=== PATIENT | female | born 1985 | race Caucasian/White ===

== ENCOUNTER 2024-06-15 07:53 | Emergency (ER) | payer OTHER, SELFPAY ==
[2024-06-15 07:59] VITALS: BP 132/86
[2024-06-15 08:22] LABS: % Basophils 0.4 % (0-2); % Eosinophils 3.9 % (0-6); % Immature Granulocytes 0.8 % (0-0.5); % Lymphocytes 30.6 % (20.5-51.1); % Monocytes 7.5 % (1.7-9.3); % Neutrophils 56.8 % (42.2-75.2); Absolute Eosinophils 0.4 10^3/uL (0-0.7); Absolute Immature Granulocytes 0.1 10^3/uL (0-0.05); Absolute Lymphocytes 3.1 10^3/uL (1.2-3.4); Absolute Monocytes 0.8 10^3/uL (0.1-0.6); Absolute Neutrophils 5.7 10^3/uL (1.4-6.5); Hematocrit 40.3 % (37.0-47.0); Hemoglobin 14.2 g/dL (12.0-16.0); Mean Corp Hgb Conc. 35.2 g/dL (33.0-37.0); Mean Corpuscular Hgb 32.9 pg (27.0-31.0); Mean Corpuscular Volume 93.5 fL (81.0-99.0); Mean Platelet Volume 10.4 fL (7.4-10.4); Nucleated Red Blood Cells % 0 %; Platelet Count 231 10^3/uL (130-400); Red Blood Cell Count 4.31 10^6/uL (4.20-5.40); Red Cell Dist. Width 12.3 % (11.5-14.5); White Blood Cell Count 10.1 10^3/uL (4.8-10.8)
[2024-06-15 08:39] LABS: ALT (SGPT) 23 U/L (0-35); AST (SGOT) 22 U/L (14-36); Albumin 4.3 g/dl (3.5-5.0); Alkaline Phosphatase 57 U/L (38-126); Blood Urea Nitrogen 8 mg/dl (7-17); Calcium 9.5 mg/dl (8.4-10.2); Carbon Dioxide 27 mmol/L (22-30); Chloride 102 mmol/L (98-107); Glucose 91 mg/dl (70-99); Potassium 3.7 mmol/L (3.5-5.1); Sodium 136 mmol/L (135-145); Total Bilirubin 0.6 mg/dl (0.2-1.3); Total Protein 6.7 g/dl (6.3-8.2); eGFR > 60.00
--- NOTE | 2024-06-15 09:39 | ED.GENMED ---
History of Present Illness
General
Chief Complaint: Problems
Source: patient
Exam Limitations: none
Time Seen by Provider: 06/15/24 09:17
Nursing documentation reviewed up to this point in time: agreed with
History of Present Illness
History of Present Illness:
Patient is a 39-year-old female who presents to the ER for evaluation. Patient had IVF/embryo transfer and should be 5 weeks and 5 days however started cramping yesterday and having bleeding. She reports mostly had brownish discharge
however she did have 1 blood clot. 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 She denies any fever chills.
She is from out of [place], [place] visiting for the holiday.
She denies any pain now.
Review of Systems
Review of Systems
Allergies reviewed?: Yes
All Other Systems: ROS reviewed and negative except as documented in HPI and ROS
Constitutional: Reports no symptoms
Cardiac: Reports no symptoms
ABD/GI: Reports other (lower abdominal cramping )
: Reports other (spotting )
Musculoskeletal: Reports no symptoms
Skin: Reports no symptoms
Neurological: Reports no symptoms
Psychiatric: Reports no symptoms
Phy Exam
General Physical Exam
General Presentation: no apparent distress
General age: appears stated age
General Skin: warm and dry
General Habitus: normal
General Mental: alert
General Hydration: appears well hydrated
Gastrointestinal Exam
Gastrointestinal Exam: non tender and soft
Neurological Exam
Neurological Exam: alert and oriented x3
Musculoskeletal Exam
Musculoskeletal Exam: full ROM
Skin Exam
Skin Exam: normal color and warm/dry
Psychiatric Exam
Psychiatric Exam: normal mood/affect
Course
Orders/Labs/Results
Orders:
Orders
06/15/24 08:13
Type+Screen Urgent
Complete Blood Count/With Diff Urgent
Comprehensive Metabolic Panel Urgent
HCG, Beta Quantitative [Beta HCG Quantitative] Urgent
Is this a screen?: No
06/15/24 08:47
US W Transvaginal Urgent
Reason For Exam: vag bleed
06/15/24 10:03
ABO2 Urgent
BBK Wristband Number:
Associate notified that ABO2 has been ordered: [id number]
Date: 06/15/24
Time: 08:19
Drafting Supervisor ID: [id number]
06/15/24 12:21
Vital Signs- Treatment ONCE
Frequency: Once
Abnormal Lab Results
06/15/24
08:13
MCH 32.9 H pg
(27.0-31.0)
Abs Immat Gran (auto) 0.1 H 10^3/uL
(0-0.05)
Absolute Monos (auto) 0.8 H 10^3/uL
(0.1-0.6)
Immature Gran % 0.8 H %
(0-0.5)
06/15/24 08:13
06/15/24 08:13
Vital Signs
Initial and Last Documented VS:
Initial Vital Signs
Temp Pulse Resp BP Pulse Ox
97.4 F 84 18 132/86 100
06/15/24 07:59 06/15/24 07:59 06/15/24 07:59 06/15/24 07:59 06/15/24 07:59
Last Documented Vital Signs
Temp Pulse Resp BP Pulse Ox
98.8 F 78 16 125/90 100
06/15/24 09:51 06/15/24 09:51 06/15/24 09:51 06/15/24 09:51 06/15/24 09:51
Information
Weeks gestation: Weeks: (5)
Location: N/A
MDM/Problems Addressed
MDM/Problems Addressed:
Patient is a 39-year-old female who presented with vaginal bleeding and cramping. She is approximately 5 weeks and 5 days status post embryo transplant.
She complained of some dark vaginal spotting and had 1 blood clot. She is visiting from [place].
She presents awake alert no acute distress denies any abdominal pain now. Denies any recent fever chills denies any UTI. Patient's beta-hCG is 32,991. Ultrasound was done: Which does show a single live IUP approximate 6 weeks with moderate-sized
subchorionic hemorrhage. Heart rate 120.
Will defer pelvic exam. Patient again with no cramping denies any vaginal bleeding now. Since patient is out of town I did give patient a prescription for repeat hCG quantitative in the next 48 hours. d/c to return if any worsening of symptoms.
d/c no lifting no vaginal intercourse. She will be in contact with her OBGYN in [place].
Chronic conditions affecting care:
History of previous miscarriages
*Critical Care Note
Total Time (30-74mins, 75-104mins- exclusive of procedures): Not Applicable
ED Attending Note
-
Portions of this chart may have been created with voice recognition software.� Occasional wrong word or��sound alike� substitutions may have occurred due to the inherent limitations of voice recognition software.
Discharge Plan
Departure
Patient Disposition: Home (Routine Discharge)
Date of Disposition: 06/15/24
Time of Disposition: 12:21
Patient with high blood pressure during this ER visit?: Yes
Condition: Fair
Covid-19: Not Applicable
Discharge Problem:
Threatened miscarriage
Instructions: Threatened Miscarriage (DC)
Referrals:
UNKNOWN - PT DOES,NOT KNOW [Family Provider] -
Activity Restrictions/Additional Instructions:
As discussed avoid heavy lifting no vaginal intercourse.
You were given an outpatient prescription for repeat hCG testing in 48 hours.
You may come here to the lab at [facility] or go to the nearest lab.
Follow-up with your specialist as discussed.
Return if any worsening of symptoms include increased bleeding pain or any further concerns
Interventions
Interventions:
*Risk Screen - Suicide Last Done: 06/15/24 07:59
*General Assessment Last Done: 06/15/24 07:59
*Neglect/Abuse Screening Last Done: 06/15/24 09:51
*ED COVID-19 Vaccine History Last Done: 06/15/24 09:51
*Nursing Disposition Last Done: 06/15/24 12:30
ED-Female Genitourinary Assessment Last Done: 06/15/24 09:51
Discharge Date and Time
Discharge Date/Time: 06/15/24 12:15
Print Language: URDU
[2024-06-15 09:51] VITALS: BP 125/90; BMI 24.5
== END 2024-06-15 12:15 | disposition home or self-care (01) ==
LOC: EMR 07:53
PROVIDERS: EMERGENCY PHYSICIAN Emergency Medicine
DX: O20.0 Threatened abortion (principal); Z3A.01 Less than 8 weeks gestation of pregnancy
CPT/HCPCS: 99284; 76801; 76817; 80053; 84702; 85025; 86850; 86900; 86901

== ENCOUNTER → 2024-06-17 09:12 | Outpatient (REF) | payer OTHER, SELFPAY | LOC: REG 09:12 | DX: Z09 Encounter for follow-up examination after completed treatment for conditions other than malignant neoplasm (principal); N93.9 Abnormal uterine and vaginal bleeding, unspecified | CPT/HCPCS: 36415; 84702 ==